=== PATIENT | male | born 1980 | race Two or more races ===

== ENCOUNTER 2016-10-10 12:14 | Emergency (ER) | payer BC ==
[~2016-10-10] VITALS: Ht 175.3 cm; Wt 85.0 kg
[2016-10-10] MEDS ORDERED: IBUPROFEN 800 MG TABLET PO ONE (13:15)
[2016-10-10 14:44] VITALS: BP 143/77
== END 2016-10-10 14:47 | disposition home or self-care (01) ==
LOC: EMS 12:15
DX: S63.615A Unspecified sprain of left ring finger, initial encounter (principal); W23.0XXA Caught, crushed, jammed, or pinched between moving objects, initial encounter; Y93.73 Activity, racquet and hand sports; Y92.89 Other specified places as the place of occurrence of the external cause; Y99.8 Other external cause status
CPT/HCPCS: 99284

== ENCOUNTER 2016-10-17 11:42 | Emergency (ER) | payer BC ==
[~2016-10-17] VITALS: Ht 175.3 cm; Wt 99.0 kg
[2016-10-17 13:46] VITALS: BP 126/68
== END 2016-10-17 13:50 | disposition home or self-care (01) ==
LOC: EMS 12:06
DX: S63.615A Unspecified sprain of left ring finger, initial encounter (principal); W23.0XXA Caught, crushed, jammed, or pinched between moving objects, initial encounter; Y93.89 Activity, other specified; Y92.89 Other specified places as the place of occurrence of the external cause; Y99.8 Other external cause status
CPT/HCPCS: 99281